=== PATIENT | female | born 1990 | race African-American/Black ===

== ENCOUNTER 2019-01-12 02:12 | Emergency (ER) | payer OTHER ==
[~2019-01-12] VITALS: Ht 170.2 cm; Wt 54.8 kg
[~2019-01-12 02:12] MED LIST: FERR-31 PO
[2019-01-12 02:14] VITALS: Ht 170.2 cm; Wt 54.8 kg
[2019-01-12] MEDS ORDERED: HYDROmorphONE 1 MG/ML SYG IV STA (02:59)
[2019-01-12] MEDS ORDERED: ONDANSETRON 4 MG INJ IV STA ×2 (02:59→04:55)
[2019-01-12] MEDS ORDERED: ACETAMINOPHEN 500 MG TAB PO STA (03:35)
[2019-01-12] MEDS ORDERED: CEFTRIAXONE 1 GM/50 ML (PMX) 50 ML IVPB ONE (04:00)
[2019-01-12] MEDS ORDERED: ONDA4TAB14 SL (04:57)
[2019-01-12] MEDS ORDERED: NITR-58 PO (04:57)
[2019-01-12] MEDS ORDERED: HYDR-4011 PO (04:57)
--- NOTE | 2019-01-12 05:00 | ERD ---
ER Documentation Chief Complaint Chief Complaint R flank pain x 1week HPI This is a 28-year-old female complains of right flank pain for the past 2 to 3 days. The patient states that she having some urinary frequency and fever and c hills today. No nausea vomiting or diarrhea. The pain is located in there right costovertebral area and also the right upper quadrant. She does have lack of appetite no headache sore throat no cough no hematuria ROS All systems reviewed and are negative except as per history of present illness. Medications Home Meds Active Scripts Hydrocodone/Acetaminophen ([place] 5-325 Tablet) 1 Each Tablet, 1 TAB PO Q6H PRN for PAIN, #16 TAB Prov:ETHANOS,FERDINANDSTOLOS A. DO 01/12/19 Nitrofurantoin Monohyd Macrocr* (Macrobid*) 100 Mg Capsr, 100 MG PO BID for 14 Days, CAP Prov:LEISABELOS,APOSTOLOS A. DO 01/12/19 Ondansetron (Ondansetron Odt) 4 Mg Tab.rapdis, 4 MG SL Q6H PRN for NAUSEA AND/OR VOMITING, #10 TAB Prov:LEISABELOSFERDINANDSTOLOS A. DO 01/12/19 Reported Medications Ferrous Sulfate (Iron Supplement) 1 Tab Tablet, 1 TAB PO DAILY 11/27/11 [None] No Conflict Check 10/12/10 Allergies Allergies: Coded Allergies: No Known Drug Allergies (Verified Allergy, Mild, 02/28/14) PMhx/Soc History of Surgery: No Anesthesia Reaction: No Hx Neurological Disorder: Yes (Migrane) Hx Respiratory Disorders: No Hx Cardiac Disorders: Yes (Anemia) Hx Psychiatric Problems: Yes (Post Depression) Hx Miscellaneous Medical Probl: No Hx Alcohol Use: Yes (1x 6oz/month) Hx Substance Use: No Hx Tobacco Use: No Smoking Status: Never smoker FmHx Family History: No coronary disease Physical Exam Vitals Vital Signs Date Temp Pulse Resp B/P (MAP) Pulse Ox O2 O2 Flow FiO2 Time Delivery Rate 01/12/19 98.4 88 18 120/81 100 Room Air 04:25 (94) 01/12/19 100.6 88 18 120/81 100 Room Air 02:37 (94) 01/12/19 100.6 101 18 114/71 98 02:14 (85) Physical Exam Const: Well-developed, well-nourished Head: Atraumatic, normocephalic Eyes: Normal Conjunctiva, PERRLA, EOMI, normal sclera, no nystagmus ENT: Normal External Ears, Nose and Mouth, moist mucus membranes. Neck: Full range of motion. No meningismus, no lymphadenopathy. Resp: Clear to auscultation bilaterally, no wheezing, rhonchi, rales Cardio: Regular rate and rhythm, no murmurs, S1 S2 present Abd: Soft, mild right upper quadrant tenderness, non distended. Normal bowel sounds, no guarding or rebound, no pulsitile abdominal masses or bruits Skin: No petechiae or rashes, no ecchymosis , no maculopapular rash Back: Right CVA tenderness] Ext: No cyanosis, or edema, FROM x 4, normal inspection, neurovascularly intact x 4 Neur: Awake and alert, STR 5/5 x 4, sensation intact x 4, no focal findings, cerebellum intact Psych: Normal Mood and Affect Result Diagram: 01/12/19 0246 01/12/19 0246 Results 24 hrs Laboratory Tests Test 01/12/19 02:46 01/12/19 02:58 White Blood Count 8.0 10^3/ul Red Blood Count 4.75 10^6/ul Hemoglobin 12.2 g/dl Hematocrit 37.1 % Mean Corpuscular Volume 78.1 fl Mean Corpuscular Hemoglobin 25.7 pg Mean Corpuscular Hemoglobin Concent 32.9 g/dl Red Cell Distribution Width 13.2 % Platelet Count 196 10^3/UL Mean Platelet Volume 10.1 fl Immature Granulocytes % 0.400 % Neutrophils % 76.9 % Lymphocytes % 14.6 % Monocytes % 5.7 % Eosinophils % 2.2 % Basophils % 0.2 % Nucleated Red Blood Cells % 0.0 /100WBC Immature Granulocytes # 0.030 10^3/ul Neutrophils # 6.2 10^3/ul Lymphocytes # 1.2 10^3/ul Monocytes # 0.5 10^3/ul Eosinophils # 0.2 10^3/ul Basophils # 0.0 10^3/ul Nucleated Red Blood Cells # 0.0 10^3/ul Urine Color YELLOW Urine Clarity CLOUDY Urine pH 5.0 Urine Specific [place] 1.009 Urine Ketones NEGATIVE mg/dL Urine Nitrite NEGATIVE mg/dL Urine Bilirubin NEGATIVE mg/dL Urine Urobilinogen NEGATIVE mg/dL Urine Leukocyte Esterase 2+ Oswaldo/ul Urine Microscopic RBC 7 /HPF Urine Microscopic WBC > 182 /HPF Urine Squamous Epithelial Cells FEW /HPF Urine Bacteria FEW /HPF Urine Hemoglobin 1+ mg/dL Urine Glucose NEGATIVE mg/dL Urine Total Protein NEGATIVE mg/dl Sodium Level 140 mmol/L Potassium Level 3.4 mmol/L Chloride Level 105 mmol/L Carbon Dioxide Level 26 mmol/L Anion Gap 9 Blood Urea Nitrogen 9 mg/dl Creatinine 0.79 mg/dl Est Glomerular Filtrat Rate mL/min > 60 mL/min Glucose Level 135 mg/dl Calcium Level 8.7 mg/dl Total Bilirubin 0.7 mg/dl Direct Bilirubin 0.00 mg/dl Indirect Bilirubin 0.7 mg/dl Aspartate Amino Transf (AST/SGOT) 19 IU/L Alanine Aminotransferase (ALT/SGPT) 10 IU/L Alkaline Phosphatase 63 IU/L Total Protein 7.4 g/dl Albumin 3.7 g/dl Globulin 3.70 g/dl Albumin/Globulin Ratio 1.00 Lipase 127 U/L POC Beta HCG, Qualitative NEGATIVE Current Medications Medications Dose Sig/Robert Start Time Status Last (Trade) Ordered Route PRN Stop Time Admin Dose Reason Admin 1 mg ONCE STAT 01/12/19 DC 01/12/19 Hydromorphone IV 02:59 03:06 HCl 01/12/19 03:00 (Dilaudid) Ondansetron 4 mg ONCE STAT 01/12/19 DC 01/12/19 HCl (Zofran IV 02:59 03:05 Inj) 01/12/19 03:00 1,000 mg ONCE STAT 01/12/19 DC Acetaminophen PO 03:35 (Tylenol 01/12/19 03:39 Tab) Ceftriaxone 50 ml @ ONCE ONCE 01/12/19 DC 01/12/19 Sodium 100 mls/hr IVPB 04:00 04:04 01/12/19 04:29 Ondansetron 4 mg ONCE STAT 01/12/19 DC HCl (Zofran IV 04:55 Inj) 01/12/19 04:57 Procedures/MDM Ultrasound reviewed by me demonstrates no gallstones. She does have a large amount of white blood cells in the urine and right CVA tenderness consistent with pyelonephritis. She does have low-grade fever here. She did have a urine culture and we gave her 1 g of Rocephin IV, will discharge home with Naren Ramirez and Rossi Departure Diagnosis: Primary Impression: Pyelonephritis Condition: Stable Patient Instructions: Pyelonephritis, Female (Adult) CHRISTINE LAY DO Jan 12, 2019 05:00
[2019-01-12 05:02] VITALS: BP 126/65; PULSE 99; RESP 19
== END 2019-01-12 05:02 | disposition home or self-care (01) ==
LOC: E/R 02:12
DX: N12 Tubulo-interstitial nephritis, not specified as acute or chronic (principal)
CPT/HCPCS: 36415; 76705; 80053; 81001; 81025; 83690; 85025; 87086; 96374; 96375; 96376; J0696; J1170; J2405; Z7502